=== PATIENT | male | born 1965 | race Caucasian/White ===

== ENCOUNTER 2023-12-16 05:22 | Emergency (ER) | payer OTHER ==
[~2023-12-16] VITALS: Ht 182.9 cm; Wt 75.8 kg
[~2023-12-16 05:22] MED LIST: ACETAMINOPHEN500 MG PO; HYDACE5 PO; IBUP400 PO; RXHYDACE PO; Tamiflu75 MG PO
[2023-12-16 05:57] LABS: BASOPHILS ABSOLUTE AUTO 0.02 K/mm3 (0.00-0.23); BASOPHILS PERCENT AUTO 0 % (0-2); EOSINOPHILS ABSOLUTE AUTO 0.04 K/mm3 (0.00-0.68); EOSINOPHILS PERCENT AUTO 1 % (0-6); Hemoglobin 13.3 g/dL (13.5-17.5); IMMATURE GRAN ABSOLUTE AUTO 0.02 K/mm3 (0.00-0.10); IMMATURE GRAN PERCENT AUTO 0 % (0-1); LYMPHOCYTES ABSOLUTE AUTO 0.28 K/mm3 (0.84-5.20); LYMPHOCYTES PERCENT AUTO 5 % (21-46); MONOCYTES ABSOLUTE AUTO 0.64 K/mm3 (0.16-1.47); MONOCYTES PERCENT AUTO 11 % (4-13); Mean Corpuscular HGB 30.9 pg (26.0-34.0); Mean Corpuscular HGB Conc 34.1 g/dL (31.5-36.5); Mean Corpuscular Volume 91 fL (80-100); Mean Platelet Volume 9.9 fL (9.1-12.4); NEUTROPHILS ABSOLUTE AUTO 4.62 K/mm3 (1.96-9.15); NEUTROPHILS PERCENT AUTO 82 % (41-73); Platelet Count 245 K/mm3 (150-400); RDW Coefficient Variation 14.2 % (11.7-14.2); RDW Standard Deviation 47.6 fL (35.1-46.3); White Blood Cell Count 5.62 K/mm3 (4.00-11.30)
[2023-12-16 06:16] LABS: Albumin, Blood 3.6 g/dL (3.4-5.0); Albumin/Globulin Ratio 1.2 (0.8-1.8); Bilirubin, Total 0.4 mg/dL (0.1-1.0); Calcium, Blood 8.3 mg/dL (8.5-10.1); Creatinine, Blood 0.8 mg/dL (0.60-1.20); Globulin, Blood 2.9 g/dL (2.2-4.0); Potassium, Blood 3.5 mmol/L (3.5-5.5); Total Protein, Blood 6.5 g/dL (6.4-8.2)
[2023-12-16] MEDS ORDERED: NS 1,000 ML IV SCH (06:20)
[2023-12-16 07:59] LABS: Influenza A, PCR NEGATIVE (NEGATIVE); Influenza B, PCR NEGATIVE (NEGATIVE); Resp Syncytial Virus, PCR NEGATIVE (NEGATIVE)
[2023-12-16 08:05] LABS: SARS-Cov-2 (COVID-19) PCR, MMC POSITIVE (NEGATIVE)
[2023-12-16 08:21] LABS: Source, Urine Clean Catch
[2023-12-16 08:27] LABS: Appearance, Urine Clear (Clear); Bilirubin, Urine Neg (Neg); Blood, Urine Neg (Neg); Color, Urine Yellow (P-Yellow); Glucose Qualitative, Urine Neg (Neg); Ketones, Urine 3+ (Neg); Leukocyte Esterase, Urine Neg (Neg); Nitrite, Urine Neg (Neg); Protein, Urine 1+ (Neg); Urobilinogen, Urine NORM (Normal)
[2023-12-16] MEDS ORDERED: RX PP Nirmatrelvir/Ritonavir (Paxlovid) 1 CO-PACKAGE (30 Tabs) UD ONE (09:00)
[2023-12-16 09:15] VITALS: BP 104/54
== END 2023-12-16 09:25 | disposition home or self-care (01) ==
LOC: ER 05:22
PROVIDERS: Student in an Organized Health Care Education/Training Program
DX: U07.1 COVID-19 (principal); E86.0 Dehydration; R53.1 Weakness; R42 Dizziness and giddiness; Z29.81 Encounter for HIV pre-exposure prophylaxis; F17.210 Nicotine dependence, cigarettes, uncomplicated; Z79.899 Other long term (current) drug therapy
CPT/HCPCS: 0241U; 80053; 83735; 84484; 85025; 93005; 93010; 96360; 99285-25; J7030